=== PATIENT | female | born 2000 | race African-American/Black ===

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

== ENCOUNTER 2024-10-07 18:17 | Inpatient (IN) ==
--- NOTE | 2024-10-07 20:28 | Emergency Department Note ---
Impression & Plan Abscess of breast ED Provider Note CHIEF COMPLAINT: Breast abscess HISTORY OF PRESENTING ILLNESS: The patient is a pleasant, 24-year-old female who arrives to the emergency department for evaluation of a left breast abscess. The patient reports she has been taking oral antibiotics, however is noting no resolution of her symptoms. She was seen here in the emergency department on Saturday, and informed there was not a significant amount of fluid to drain. She reports there is no improvement in her symptoms, however her pain is increasing. She reports no fever. REVIEW OF SYSTEMS: See HPI for pertinent positives and pertinent negatives. ALLERGIES: See below MEDICATIONS: See below PAST MEDICAL HISTORY: See below PHYSICAL EXAM: VITALS: Vitals are noted on the nurse's note and reviewed by myself. Vital signs stable. GENERAL: 24-year-old female, in no acute distress, nondiaphoretic, well- developed well-nourished. SKIN: Large area of induration present, under the left breast fold, fluctuance present, with surrounding cellulitis. HEART: Regular rate and rhythm without murmurs gallops or rubs. LUNGS: Clear to auscultation bilaterally without wheezes, rales or rhonchi. No retractions or accessory muscle use. NEURO: Patient was alert and oriented to person place and time. No focal neurological deficits. DIFFERENTIAL DIAGNOSIS: Cellulitis, abscess, MRSA infection, DVT, necrotizing fasciitis, dermatitis, drug eruption, allergic reaction, as well as other pathologies. ED COURSE AND MEDICAL DECISION MAKING: MEDICATIONS GIVEN: Zosyn 4.5 g IVPB INTERPRETATION OF LABS: I interpreted the labs with full lab results as below in the lab section of this note. Pertinent lab results discussed in the MDM section below. INTERPRETATION OF IMAGING: Imaging studies were interpreted by myself and read by radiology as per the imaging section of this note. CONSULTATIONS: I spoke with Dr. Obrien, from general surgery who recommended IV abx and NPO at midnight. He will evaluate the patient in the morning for need of surgical intervention. MDM SUMMARY: The patient is a pleasant 24-year-old female who arrives to the emergency department for evaluation of the above-stated complaint. The patient arrived during a time of high acuity, and high-volume. Initial workup was obtained including an ultrasound of the left breast, CBC, CMP, and saline lock. Ultrasound imaging does show a complex fluid collection, with vascular flow. CBC shows no leukocytosis, with a stable anemia. CMP is unremarkable. Dr. Obrien from general surgery, recommended IV antibiotics, n.p.o. at midnight, and admission to medicine with his evaluation in the morning to determine surgical intervention if necessary. IV Zosyn was administered to the patient. I spoke with case management regarding contact with the [facility] for admission. Dr. Rasmussen, from the [facility] agreed to accept patient, under his care. Please refer to his documentation, as well as Dr. Obrien's documentation for further patient workup and treatment. DIAGNOSIS: Breast abscess The chart was completed utilizing [employer] voice recognition software. Grammatical errors, random word insertions, pronoun errors, and incomplete sentences are an occasional consequence of this system due to software limitations, ambient noise, and hardware issues. Any formal questions or concerns about the content, text, or information contained within the body of this dictation should be directly addressed to the provider for clarification. Past Med/Surg History Problem List (Updated 10/12/24 @ 23:21 by FILEMON Watson) Abscess of breast (Acute) Cellulitis of left breast (Acute) Pilonidal cyst Encounter for pre-operative examination Medical History Hx: UTI (urinary tract infection) (07/2024) s/p abx completion Morbid obesity Anxiety mild, no medications Eczema no medications Asthma Pilonidal abscess 2020 + current Syncope 2018 r/t hypoglycemia (treated at [facility] > given juice, crackers, normal saline) Surgical History History of excision of pilonidal cyst (2020) H/O wisdom tooth extraction Family History Sister Family history of reaction to anesthesia s/p appendectomy had to stay several days post op due to hypoxemia and oxygen supplementation at [facility]. Graves' disease Social History Smoking Status: Current every day smoker Tobacco Type: E-cigarettes / Vaping Cigarettes Per Day: vapes daily (Advised); Second Hand Exposure: No; Do You Dip or Chew Tobacco: No; Hx Alcohol Use: No Hx Substance Use: No Preferred Language: Niuean Communication Ability: Effective Test Lead Required: No Beliefs That Will Affect Care: None Current Living Situation: Other Current Living Situation Comment: lives with grandmother Feels Safe at Home: Yes Safety Concerns: Feels Safe At This Time Assistive Devices: None Allergies Allergies Allergy/AdvReac Type Severity Reaction Status Date / Time No Known Drug Allergies Allergy Unknown NONE Verified 10/07/24 22:58 Home Meds Home Medications Medication Instructions Recorded Confirmed montelukast 10 mg tablet 10 mg PO HS PRN allergies 03/14/21 10/07/24 albuterol sulfate 90 mcg/actuation 1 inh inhalation QID PRN sob 03/22/21 10/07/24 aerosol inhaler cetirizine 10 mg tablet 10 mg PO QAM PRN allergies 03/22/21 10/07/24 fluticasone 250 mcg-salmeterol 50 1 inh inhalation BID 03/22/21 10/07/24 mcg/dose blistr powdr for inhalation (Advair Diskus) levonorgestrel 17.5 mcg/24 hr (up 17.5 mcg intrauterine UD 08/24/24 10/07/24 to 5 yrs) 19.5mg intrauterine device (Kyleena) nystatin 100,000 unit/mL oral 5 ml PO QID 10/07/24 10/07/24 suspension Previous Rx's Medication Instructions Recorded ciprofloxacin HCl 250 mg tablet 750 mg (3 x 250 mg) PO Q12H #12 10/09/24 tabs fluconazole 150 mg tablet 150 mg PO DAILY 1 dose #1 tab 10/09/24 oxycodone-acetaminophen 5 mg-325 1 tab PO Q6H PRN pain (scale score 10/09/24 mg tablet 7-10) #5 tabs Results & Data (ED) Vital Signs Vital Signs - 24 hr 10/07/24 18:41 10/07/24 22:28 Temperature 36.1 C L 36.7 C Temperature Source Temporal Artery Scan Oral Pulse Rate 78 Pulse Rate [Right] 59 L Respiratory Rate 18 16 Respiratory Effort / Characteristics Non-Labored Spontaneous Non-Labored Spontaneous Respiratory Depth Normal Normal Respiratory Pattern Regular Regular Blood Pressure 148/85 H Blood Pressure [Right Arm] 123/88 Blood Pressure Mean 106 Blood Pressure Mean [Right Arm] 99 Blood Pressure Position [Right Arm] Semi-fowlers Pulse Oximetry 100 100 Oxygen Delivery Method Room Air Room Air Sepsis Recent Fever Within 48 Hours No Sepsis New/Unexplained Change in Mental Status N/A Sepsis Action Taken by Nursing No Action Required Home Medications Current Medication List: was personally reviewed by me Laboratory Data Attestation: I reviewed the patient's lab results. 10/09/24 07:45 10/09/24 07:45 Lab Results 10/07/24 Range/Units 22:47 WBC 8.20 (4.8-10.8) K/ul RBC 4.07 L (4.20-5.40) M/uL Hgb 11.0 L (12.0-16.0) g/dl Hct 34.1 L (37.0-47.0) % MCV 83.8 (80.0-100.0) fL MCH 27.0 (25.0-34.0) pg MCHC 32.3 (32.0-36.0) g/dL RDW Std Deviation 40.7 (36.4-46.3) fL RDW Coeff of Fadi 13.2 (11.5-14.5) % Plt Count 300 (130-400) K/uL MPV 9.9 (9.4-12.4) fL Immature Gran % (Auto) 0.2 % Neut % (Auto) 38.0 % Lymph % (Auto) 47.2 % Walsh % (Auto) 9.5 % Eos % (Auto) 4.6 % Baso % (Auto) 0.5 % Neut # (Auto) 3.11 (1.40-6.50) K/uL Lymph # (Auto) 3.87 H (1.20-3.40) K/uL Walsh # (Auto) 0.78 H (0.11-0.59) K/uL Eos # (Auto) 0.38 (0.00-0.50) K/uL Baso # (Auto) 0.04 (0.00-0.20) K/uL Immature Gran # (Auto) 0.02 (0.01-0.20) K/uL Sodium 138 (136-145) mmol/L Potassium 3.8 (3.5-5.1) mmol/L Chloride 104 (98-107) mmol/L Carbon Dioxide 28 (21-32) mmol/L Anion Gap 6 (3-11) BUN 11 (6-23) mg/dl Creatinine 1.09 (0.6-1.2) mg/dl Est Cr Clr Drug Dosing 110.9 ml/min eGFR 72.75 BUN/Creatinine Ratio 10.1 (10-20) Glucose 76 (70-99(Fasting)) mg/dl Calcium 8.8 (8.6-10.3) mg/dl Total Bilirubin 0.4 (0.2-1.0) mg/dl AST 21 (13-39) U/L ALT 29 (7-52) U/L Alkaline Phosphatase 56 (34-104) U/L Total Protein 7.6 (6.0-8.3) gm/dl Albumin 3.8 (3.4-5.0) gm/dl Globulin 3.8 (2.5-4.0) gm/dl Albumin/Globulin Ratio 1.0 (0.9-2) Administered Medications Discontinued Medications Acetaminophen (Acetaminophen 325 Mg Tab) 650 mg PO Q4H PRN PRN Reason: pain/fever Stop: 11/07/24 01:23 Last Admin: 10/08/24 10:35 Dose: 650 mg Documented By: NMS Bupivacaine HCl/Epinephrine Bitart (Bupivacaine/Epinephrine 0.5% Mpf 1:200,000 30 Ml Vial) Confirm Administered Dose 30 ml .ROUTE .STK-MED ONE Stop: 10/08/24 14:29 Last Admin: 10/08/24 15:07 Dose: 20 ml Documented By: [facility] Ciprofloxacin (Ciprofloxacin 500 Mg Tab) 750 mg PO Q12H JESS; Protocol Stop: 10/16/24 11:59 Last Admin: 10/09/24 11:57 Dose: 750 mg Documented By: MTM Fentanyl Citrate (Fentanyl Citrate Pf 100 Mcg/2 Ml Vial) 25 mcg IV Q5M PRN PRN Reason: PACU Use Only-Pain Stop: 10/08/24 22:08 Last Admin: 10/08/24 15:55 Dose: 25 mcg Documented By: ENDY Fluticasone/Vilanterol (Fluticasone/Vilanterol 200/25mcg 14 Puffs/Inhaler) 1 puffs INH DAILY JESS Stop: 11/07/24 08:59 Last Admin: 10/09/24 07:49 Dose: 1 puffs Documented By: Admin: 10/08/24 08:23 Dose: 1 puffs Documented By: YUDELKA Hydromorphone HCl (Hydromorphone Inj 0.5 Mg/0.5 Ml Syr) 0.5 mg IV Q4H PRN PRN Reason: Pain Stop: 10/22/24 14:07 Last Admin: 10/08/24 23:22 Dose: 0.5 mg Documented By: Admin: 10/08/24 17:13 Dose: 0.5 mg Documented By: YUDELKA Hydromorphone HCl (Hydromorphone Inj 1 Mg/Ml Syringe) Confirm Administered Dose 1 mg .ROUTE .STK-MED ONE Stop: 10/08/24 15:14 Last Admin: 10/08/24 16:49 Dose: Not Given Documented By: YUDELKA Piperacillin Sod/Tazobactam Sod (Zosyn) 4.5 gm in 100 mls @ 200 mls/hr IV NOW ONE; Protocol Stop: 10/07/24 23:18 Last Infusion: 10/07/24 23:52 Dose: Infused Documented By: Admin: 10/07/24 23:21 Dose: 200 mls/hr Documented By: ELLIE Piperacillin Sod/Tazobactam Sod (Zosyn) 4.5 gm in 100 mls @ 25 mls/hr IV Q8H JESS; Protocol Stop: 10/15/24 03:59 Last Infusion: 10/09/24 08:01 Dose: Infused Documented By: Admin: 10/09/24 04:00 Dose: 25 mls/hr Documented By: Infusion: 10/09/24 00:59 Dose: Infused Documented By: Admin: 10/08/24 20:39 Dose: 25 mls/hr Documented By: Infusion: 10/08/24 19:23 Dose: Infused Documented By: Admin: 10/08/24 13:55 Dose: 25 mls/hr Documented By: Infusion: 10/08/24 09:20 Dose: Infused Documented By: Admin: 10/08/24 05:16 Dose: 25 mls/hr Documented By: AL Sodium Chloride (Nss) 1,000 mls @ 100 mls/hr IV .Q10H JESS Stop: 10/09/24 01:23 Last Admin: 10/08/24 18:34 Dose: Not Given Documented By: Infusion: 10/08/24 18:33 Dose: Infused Documented By: Admin: 10/08/24 01:54 Dose: 100 mls/hr Documented By: AL Vancomycin HCl 2,500 mg/ (Sodium Chloride) 550 mls @ 180 mls/hr IV NOW ONE Stop: 10/08/24 04:48 Last Infusion: 10/08/24 05:34 Dose: Infused Documented By: Admin: 10/08/24 01:54 Dose: 180 mls/hr Documented By: AL Vancomycin HCl 1,250 mg/ (Sodium Chloride) 275 mls @ 200 mls/hr IV Q12H JESS Stop: 10/15/24 13:59 Last Infusion: 10/09/24 02:40 Dose: Infused Documented By: Admin: 10/09/24 01:17 Dose: 200 mls/hr Documented By: Infusion: 10/08/24 16:56 Dose: Infused Documented By: Admin: 10/08/24 14:14 Dose: 200 mls/hr Documented By: YUDELKA Midazolam HCl (Midazolam Hcl 1 Mg/Ml 2ml Vial) Confirm Administered Dose 2 mg .ROUTE .STK-MED ONE Stop: 10/08/24 15:22 Last Admin: 10/08/24 16:50 Dose: Not Given Documented By: YUDELKA Morphine Sulfate (Morphine Sulfate 4 Mg/Ml 1 Ml Carp\Vial) 3 mg IV NOW STA Stop: 10/07/24 23:53 Last Admin: 10/08/24 00:20 Dose: 3 mg Documented By: ELLIE Morphine Sulfate (Morphine Sulfate 4 Mg/Ml 1 Ml Carp\Vial) 3 mg IV Q6H PRN PRN Reason: Severe Pain (Scale 7, 8, 9,10) Stop: 10/22/24 01:23 Last Admin: 10/08/24 05:16 Dose: 3 mg Documented By: AL Nystatin (Nystatin Susp 500,000 U/5 Ml Udc) 5 ml PO QID JESS Stop: 10/18/24 08:59 Last Admin: 10/09/24 11:58 Dose: 5 ml Documented By: Admin: 10/09/24 07:49 Dose: 5 ml Documented By: Admin: 10/08/24 20:26 Dose: 5 ml Documented By: Admin: 10/08/24 17:42 Dose: Not Given Documented By: Admin: 10/08/24 17:13 Dose: 5 ml Documented By: Admin: 10/08/24 08:23 Dose: 5 ml Documented By: YUDELKA Ondansetron HCl (Ondansetron Inj 2 Mg/Ml 2 Ml Vial) 4 mg IV Q6H PRN PRN Reason: Nausea And Vomiting Stop: 11/07/24 16:34 Last Admin: 10/08/24 20:41 Dose: 4 mg Documented By: MARGARITA Oxycodone/Acetaminophen (Oxycodone/Acetaminophen 5mg/325mg Tab) 2 tab PO Q4H PRN PRN Reason: SEVERE Pain (7,8,9,10) Stop: 10/22/24 16:34 Last Admin: 10/09/24 04:03 Dose: 2 tab Documented By: MARGARITA Imaging Data Attestation: I personally reviewed and interpreted this imaging study as follows: Radiologist's Impression: Breast Ultrasound 10/07/24 20:23 Exam(s): US LEFT BREAST EXAM: US Left Breast, Limited CLINICAL HISTORY: Reason for exam: breast. TECHNIQUE: Limited real time ultrasound of the left breast with image documentation, including axilla when performed. COMPARISON: No relevant prior studies available. FINDINGS: Left breast: Complex well-circumscribed hypoechoic fluid collection in the left breast at 9:00 measuring 4.0 x 4.7 x 2.5 cm. IMPRESSION: Complex hypoechoic fluid collection in the left breast at 9:00 measuring 4.0 x 4.7 x 2.5 cm with abscess in the appropriate clinical setting. Electronically signed by: Xavier Morris MD 10/07/24 22:37 PM Discharge Plan Visit Data Chief Complaint: Breast Pain/Problems Stated Complaint: BREAST ABCESS ED Provider: Nikolay Dow ED Midlevel Provider: Samia Perez Discharge Problem: Abscess of breast Patient Disposition: Admitted As Inpatient Discharge Instructions Interventions: ED Discharge Assessment Last Done: 10/08/24 01:14
--- NOTE | 2024-10-07 22:38 | Ultrasound Report ---
Exam(s): US LEFT BREAST EXAM: US Left Breast, Limited CLINICAL HISTORY: Reason for exam: breast. TECHNIQUE: Limited real time ultrasound of the left breast with image documentation, including axilla when performed. COMPARISON: No relevant prior studies available. FINDINGS: Left breast: Complex well-circumscribed hypoechoic fluid collection in the left breast at 9:00 measuring 4.0 x 4.7 x 2.5 cm. IMPRESSION: Complex hypoechoic fluid collection in the left breast at 9:00 measuring 4.0 x 4.7 x 2.5 cm with abscess in the appropriate clinical setting. Electronically signed by: Xavier Morris MD 10/07/24 22:37 PM
[2024-10-07] MEDS: PIPERACILLIN/TAZOBACTAM 4.5 GM/100 ML BAG IV ONE (23:21)
[2024-10-07 23:38] LABS: Basophils # (auto) 0.04 K/uL (0.00-0.20); Basophils % (auto) 0.5 %; Eosinophils # (auto) 0.38 K/uL (0.00-0.50); Eosinophils % (auto) 4.6 %; Hematocrit (blood only) 34.1 % (37.0-47.0); Immature Granulocytes # (auto) 0.02 K/uL (0.01-0.20); Immature Granulocytes % (auto) 0.2 %; Lymphocytes # (auto) 3.87 K/uL (1.20-3.40); Lymphocytes % (auto) 47.2 %; Mean Corpuscular Hgb Conc 32.3 g/dL (32.0-36.0); Mean Corpuscular Volume 83.8 fL (80.0-100.0); Mean Platelet Volume 9.9 fL (9.4-12.4); Monocytes # (auto) 0.78 K/uL (0.11-0.59); Monocytes % (auto) 9.5 %; Neutrophils # (auto) 3.11 K/uL (1.40-6.50); Platelet Count 300 K/uL (130-400); RDW Coefficient of Variation 13.2 % (11.5-14.5); RDW Standard Deviation 40.7 fL (36.4-46.3); Red Blood Count 4.07 M/uL (4.20-5.40)
[2024-10-07 23:57] LABS: Albumin Level 3.8 gm/dl (3.4-5.0); BUN Creatinine Ratio 10.1 (10-20); Bilirubin,Total 0.4 mg/dl (0.2-1.0); Calcium 8.8 mg/dl (8.6-10.3); Creatinine Clr Calc Pharmacy 110.9 ml/min; Globulin 3.8 gm/dl (2.5-4.0); Potassium 3.8 mmol/L (3.5-5.1); Total Protein 7.6 gm/dl (6.0-8.3)
--- NOTE | 2024-10-08 00:18 | History & Physical Report ---
Date of Service October 07, 2024 Assessment & Plan (1) Abscess of breast: Plan: 24-year-old female with past medical history significant for allergic rhinitis, mild persistent asthma, morbid obesity, eczema, presents with failed outpatient treatment for left breast abscess. Patient says having the abscess for last 1 week. Initially was treated with amoxicillin. She was in the ER on 10/06/2024 and she was prescribed Keflex and Bactrim. Patient says she is not getting better. Having a lot of pain. Denies any fevers. No drainage from the abscess. No headache. No sore throat or cough. No nausea. No shortness of breath. No abdominal pain. Currently resting comfortably and hemodynamically stable. Patient says she had breast abscess in the same site couple of years ago. Abscess of left breast Failed outpatient treatment initially with Amoxicillin and then with Keflex and Bactrim Left breast upper medial aspect swollen, no erythema or drainage seen on inspection with nurse present in the room Breast ultrasound showing 4X4.7X 2.5 cm complex well-circumscribed hypoechoic fluid collection in the left breast at 9 Empirically starting on IV Vanco and Zosyn N.p.o., IV fluids, pain control Surgery consult in a.m. Mild persistent asthma Continue home inhalers Currently stable Morbid obesity Counseling DVT prophylaxis SCDs for now Disposition Medical floor Full code History of Present Illness Chief Complaint: Left breast abscess Primary Care Provider: Jazmine Shell MD 24-year-old female with past medical history significant for allergic rhinitis, mild persistent asthma, morbid obesity, eczema, presents with failed outpatient treatment for left breast abscess. Patient says having the abscess for last 1 week. Initially was treated with amoxicillin. She was in the ER on 10/06/2024 and she was prescribed Keflex and Bactrim. Patient says she is not getting better. Having a lot of pain. Denies any fevers. No drainage from the abscess. No headache. No sore throat or cough. No nausea. No shortness of breath. No abdominal pain. Currently resting comfortably and hemodynamically stable. Patient says she had breast abscess in the same site couple of years ago. Past medical history. As mentioned above Past surgical history. No surgical history on file. Social history. Vapes per epic. No alcohol use. No drug use. Family history. Mother has chronic rhinitis. Asthma. Maternal aunt has asthma. Maternal grandmother has asthma. Diabetes. Sister has asthma. Sister has Graves' disease. Allergies Allergy/AdvReac Type Severity Reaction Status Date / Time No Known Drug Allergies Allergy Unknown NONE Verified 10/07/24 22:58 Home Medications Medication Instructions Recorded Confirmed Type montelukast 10 mg tablet 10 mg PO HS PRN allergies 03/14/21 10/07/24 History albuterol sulfate 90 mcg/actuation 1 inh inhalation QID PRN sob 03/22/21 10/07/24 History aerosol inhaler cetirizine 10 mg tablet 10 mg PO QAM PRN allergies 03/22/21 10/07/24 History fluticasone 250 mcg-salmeterol 50 1 inh inhalation BID 03/22/21 10/07/24 History mcg/dose blistr powdr for inhalation (Advair Diskus) levonorgestrel 17.5 mcg/24 hr (up 17.5 mcg intrauterine UD 08/24/24 10/07/24 History to 5 yrs) 19.5mg intrauterine device (Kyleena) cephalexin 500 mg capsule 500 mg PO TID 10 days #30 caps 10/05/24 10/07/24 Rx sulfamethoxazole 800 1 tab PO BID 10 days #20 tabs 10/05/24 10/07/24 Rx mg-trimethoprim 160 mg tablet (Bactrim DS) nystatin 100,000 unit/mL oral 5 ml PO QID 10/07/24 10/07/24 History suspension Past Med/Surg History Problem List (Updated 10/05/24 @ 19:47 by Sarai Bobo DO) Abscess of breast (Acute) Cellulitis of left breast (Acute) Pilonidal cyst Encounter for pre-operative examination Medical History Anxiety mild, no medications Asthma Eczema no medications Hx: UTI (urinary tract infection) (07/2024) s/p abx completion Morbid obesity Pilonidal abscess 2020 + current Syncope 2017 r/t hypoglycemia (treated at [facility] > given juice, crackers, normal saline) Surgical History H/O wisdom tooth extraction History of excision of pilonidal cyst (2020) Family History Sister Family history of reaction to anesthesia s/p appendectomy had to stay several days post op due to hypoxemia and oxygen supplementation at [facility]. Graves' disease Social History Smoking Status: Current every day smoker Tobacco Type: E-cigarettes / Vaping Cigarettes Per Day: vapes daily (Advised); Second Hand Exposure: No; Do You Dip or Chew Tobacco: No; Hx Alcohol Use: No Hx Substance Use: No Preferred Language: Luxembourger Communication Ability: Effective Post Commander Required: No Beliefs That Will Affect Care: None Current Living Situation: Other Current Living Situation Comment: lives with grandmother Feels Safe at Home: Yes Safety Concerns: Feels Safe At This Time Assistive Devices: None Review of Systems Review of Systems: All systems reviewed & are unremarkable except as noted in HPI & below Physical Exam Physical Exam: General- Not in distress Head- atraumatic Eyes- PERRL. ENT- oropharynx clear Neck- supple, no JVD. Lungs- clear to auscultation no wheezing or crackles Heart- regular rhythm; no murmur, no gallop Breast : Left breast upper medial side swollen, no erythema or drainage seen Abdomen- normal bowel sounds, soft, nontender, no distension Extremities- no pretibial edema, no erythema seen. Neuro- alert, oriented PERRL, no facial palsy; no dysarthria; moves extremities Results & Data Results & Data Vital Signs (Past 12 Hours) Vital Signs Temp Pulse Pulse Resp BP BP Pulse Ox 10/07/24 22:28 36.7 C 59 L 16 123/88 100 10/07/24 18:41 36.1 C L 78 18 148/85 H 100 O2 Del Method 10/07/24 22:28 Room Air 10/07/24 18:41 Room Air Diagnostic Findings Laboratory Results WBC 8.20 K/ul (4.8-10.8) 10/07/24 22:47 RBC 4.07 M/uL (4.20-5.40) L 10/07/24 22:47 Hgb 11.0 g/dl (12.0-16.0) L 10/07/24 22:47 Hct 34.1 % (37.0-47.0) L 10/07/24 22:47 MCV 83.8 fL (80.0-100.0) 10/07/24 22:47 MCH 27.0 pg (25.0-34.0) 10/07/24 22:47 MCHC 32.3 g/dL (32.0-36.0) 10/07/24 22:47 RDW Std Deviation 40.7 fL (36.4-46.3) 10/07/24 22: RDW Coeff of Fadi 13.2 % (11.5-14.5) 10/07/24 22:47 Plt Count 300 K/uL (130-400) 10/07/24 22:47 MPV 9.9 fL (9.4-12.4) 10/07/24 22:47 Immature Gran % (Auto) 0.2 % 10/07/24 22:47 Neut % (Auto) 38.0 % 10/07/24 22:47 Lymph % (Auto) 47.2 % 10/07/24 22:47 [place] % (Auto) 9.5 % 10/07/24 22:47 Eos % (Auto) 4.6 % 10/07/24 22:47 Baso % (Auto) 0.5 % 10/07/24 22:47 Neut # (Auto) 3.11 K/uL (1.40-6.50) 10/07/24 22:47 Lymph # (Auto) 3.87 K/uL (1.20-3.40) H 10/07/24 22:47 [place] # (Auto) 0.78 K/uL (0.11-0.59) H 10/07/24 22:47 Eos # (Auto) 0.38 K/uL (0.00-0.50) 10/07/24 22:47 Baso # (Auto) 0.04 K/uL (0.00-0.20) 10/07/24 22:47 Immature Gran # (Auto) 0.02 K/uL (0.01-0.20) 10/07/24 22:47 Sodium 138 mmol/L (136-145) 10/07/24 22:47 Potassium 3.8 mmol/L (3.5-5.1) 10/07/24 22:47 Chloride 104 mmol/L (98-107) 10/07/24 22:47 Carbon Dioxide 28 mmol/L (21-32) 10/07/24 22:47 Anion Gap 6 (3-11) 10/07/24 22:47 BUN 11 mg/dl (6-23) 10/07/24 22:47 Creatinine 1.09 mg/dl (0.6-1.2) 10/07/24 22:47 Est Cr Clr Drug Dosing 110.9 ml/min 10/07/24 22:47 eGFR 72.75 10/07/24 22:47 BUN/Creatinine Ratio 10.1 (10-20) 10/07/24 22:47 Glucose 76 mg/dl (70-99(Fasting)) 10/07/24 22:47 Calcium 8.8 mg/dl (8.6-10.3) 10/07/24 22:47 Total Bilirubin 0.4 mg/dl (0.2-1.0) 10/07/24 22:47 AST 21 U/L (13-39) 10/07/24 22:47 ALT 29 U/L (7-52) 10/07/24 22:47 Alkaline Phosphatase 56 U/L (34-104) 10/07/24 22:47 Total Protein 7.6 gm/dl (6.0-8.3) 10/07/24 22:47 Albumin 3.8 gm/dl (3.4-5.0) 10/07/24 22:47 Globulin 3.8 gm/dl (2.5-4.0) 10/07/24 22:47 Albumin/Globulin Ratio 1.0 (0.9-2) 10/07/24 22:47 Impressions Breast Ultrasound 10/07/24 20:23 Exam(s): US LEFT BREAST EXAM: US Left Breast, Limited CLINICAL HISTORY: Reason for exam: breast. TECHNIQUE: Limited real time ultrasound of the left breast with image documentation, including axilla when performed. COMPARISON: No relevant prior studies available. FINDINGS: Left breast: Complex well-circumscribed hypoechoic fluid collection in the left breast at 9:00 measuring 4.0 x 4.7 x 2.5 cm. IMPRESSION: Complex hypoechoic fluid collection in the left breast at 9:00 measuring 4.0 x 4.7 x 2.5 cm with abscess in the appropriate clinical setting. Electronically signed by: Xavier Morris MD 10/07/24 22:37 PM Code Status & VTE Plan VTE Prophylaxis Plan VTE Prophylaxis will be ordered: Yes
[2024-10-08] MEDS: MoRPHine SULFATE 4 MG/ML 1 ML CARP\\VIAL IV STA (00:20)
[2024-10-08] MEDS ORDERED: CETIRIZINE HCL 10 MG TABLET PO PRN (01:24)
[2024-10-08] MEDS ORDERED: ALBUTEROL HFA 8 GM INHALER INH PRN (01:24)
[2024-10-08] MEDS ORDERED: VANCOMYCIN CONSULT ACTIVE PRN (01:24)
[2024-10-08] MEDS: SODIUM CHLORIDE 0.9% 1,000 ML IV SCH (01:54)
[2024-10-08] MEDS: VANCOMYCIN HCL 2,500 MG in SODIUM CHLORIDE 0.9% 500 ML IV ONE (01:54)
[2024-10-08] MEDS: MoRPHine SULFATE 4 MG/ML 1 ML CARP\\VIAL IV PRN (05:16)
[2024-10-08] MEDS: PIPERACILLIN/TAZOBACTAM 4.5 GM/100 ML BAG IV SCH (05:16)
--- OUTSIDE RECORDS SUMMARY | 2024-10-08 05:24 | External Medical Summary | Summary of Care ---
Author Name Unknown Organization [facility] Address [address] [facility] [place] [address] Phone [phone] Care Team Providers Care Customer Success Manager Name Role Phone Jazmine Shell MD Primary Care Provider Reason for Visit * Reason Onset Date Comments Forms Request 09/28/2024 Encounter Details Date Type Department Care Team (Late st Contact Info) Description 09/28/2024 Telephone General Internal Medicine [facility] [place] [address] [facility] [place] [address] Jazmine Shell MD [address] [place] [address] Forms Request Allergies Active Allergy Reactions Criticality Noted Date Comments Cat Dander 04/25/2020 Dog Dander 04/25/2020 Pollen 04/25/2020 documented as of this encounter (statuses as of 10/06/2024) Medications Spacer/Aero-Hold Chamber MaskIndications:M ild persistent asthma without complication Use with inhaler as directed 1 Each 0 Active Acetaminophen 500 MG Oral Tablet (Tylenol)Indicati ons:Pilonidal abscess Take 2 Tabs by mouth every 8 hours. Till pain better 100 Tab 1 Active Albuterol Sulfate HFA 108 (90 Base) MCG/ACT Inhalation Aerosol SolutionIndicatio ns:Mild persistent asthma without complication Inhale 2 Puffs by mouth every 4 hours as needed for Cough, Shortness of Breath or Wheezing. 3 to 5 minutes apart. 18 g 3 2 Active Fluticasone-Salme terol 250-50 MCG/ACT Inhalation Aerosol Powder Breath Activated (Advair Diskus) Inhale 1 Puff by mouth in the morning and 1 Puff before bedtime. 180 Each 4 Active Cetirizine HCl 10 MG Oral Tablet (ZyrTEC Allergy)Indicatio ns:Seasonal allergic rhinitis, unspecified trigger Take 1 Tablet by mouth at bedtime. 90 Tablet 4 Active Montelukast Sodium 10 MG Oral Tablet (Singulair)Indica tions:Allergic sinusitis,Eczema, unspecified type Take 1 Tablet by mouth at bedtime. 90 Tablet 4 Active Ibuprofen 600 MG Oral Tablet (Motrin)Indicatio ns:Pilonidal abscess Take 1 Tablet by mouth in the morning and 1 Tablet at noon and 1 Tablet before bedtime. With food, for pain.. 30 Tablet 4 Active Fluticasone Propionate 50 MCG/ACT Nasal Suspension (Flonase)Indicati ons:Flu-like symptoms Administer 2 Sprays into each nostril in the morning. 16 g 5 5 Active methylPREDNISolon e 4 MG Oral Tablet Therapy Pack (Medrol Dosepack)Indicati ons:Flu-like symptoms follow package directions 21 Tablet 5 Active documented as of this encounter (statuses as of 10/06/2024) Active Problems Problem Noted Date Diagnosed Date Body mass index (BMI) of 40.0 to 44.9 in adult 0 03/25/2023 Overview: Per Obesity protocol - Per Obesity protocol - - Allergic conjunctivitis, bilateral 03/09/2020 Allergic rhinitis 03/09/2020 Mild persistent asthma without complication 02/10 Eczema 11/20/2011 Abnormal weight gain 05/19/2009 documented as of this encounter (statuses as of 10/06/2024) Resolved Problems Problem Noted Date Diagnosed Date Resolved Date Body mass index (BMI) of 45. 0 to 49.9 in adult 03/23/2019 03/28/2023 Overview: Per Obesity protocol - - Allergic sinusitis 01/12/2019 0 Body mass index (BMI) of 40. 0 to 44.9 in adult 10/20/2018 03/26/2019 Overview: Per Obesity protocol #1 - Body mass index (BMI) of 45. 0 to 49.9 in adult 07/21/2018 10/21/2018 Overview: Per Obesity protocol #1 documented as of this encounter (statuses as of 10/06/2024) Immunizations Name Administration Dates Next Due COVID-19 mRNA, LNP-s, No Pre serve, 2-Dose Series ([employer]) 03/28/2021,03/07/2021 HPV Vaccine, 4-Valent 09/14/2014,07/14/2014 HPV Vaccine, 9-Valent 10/12/2015 Haemophilius B (HIB), unspecified 12/23/2001 Influenza Vaccine, Live, Int ranasal, Trivalent (Flumist) 06/06/2010,05/19/2009 Meningococcal Conjugate Vacc ine (Menactra/Menveo) 09/20/2016,11/20/2011 PPD 06/27/2023, 2,01/27/2021,03/25,02/24/2018 Pneumococcal Conjugate Vacci ne, 20-valent ([id number]) 01/11/2022 Pneumococcal Polysaccharide PPV23 (Pneumovax) 05/17/2020 Seasonal Influenza Vac., MDV , IM, 0.5 mL (Fluzone) 08/11/2013 Seasonal Influenza Virus Vac cine, Unspecified Formulation 05/17/2020,08/10/2019,10/14/2017,08/11,06/06/2010,05/19/2009 Seasonal Influenza, PF, 6 M & above, IM , (FluLaval or Fluzone) 05/17/2020,08/10/2019,10/14/2017 Seasonal Influenza, Quad, Na kristy (Flumist) 07/19/2015 TDAP (age 10 and older)(Boostrix) 10/14/2017 TDAP, Age 7 and older, IM (Adacel) 11/20/2011 Varicella Vaccine (Chicken Pox) 05/19/2009 documented as of this encounter Social History Tobacco Use Types Packs/Day Years Used Date Smoking Tobacco: Every Day Vaporizer Started: 2018 Smokeless Tobacco: Never Alcohol Use Standard Drinks/Week Comments No 0 (1 standard drink = 0.6 oz pur e alcohol) PHQ-2 Answer Date Recorded PHQ Adult Total Score 0 03/28/2023 Hunger Vital Sign Answer Date Recorded Worried About Running Out of Food in the Last Ye ar Never true 08/10/2019 Ran Out of Food in the Last Year Never true 08/10/2019 Comments No Sex and Gender Information Value Date Recorded Sex Assigned at Female 03/20/2019 2:12 PM EDT Legal Sex Female 6:23 AM EST Gender Identity Female 03/20/2019 2:12 PM EDT Sexual Orientation Straight 03/20/2019 2: 12 PM EDT documented as of this encounter Miscellaneous Notes * Telephone Encounter - Julisa Reynaga OSA - 09/29/2024 10:25 AM EST Called and talked to pt, she has apt 09/30/2024 * Telephone Encounter - Jazmine Shell MD - 09/28/2024 3:22 PM EST Noted and yes will fill these in visit * Telephone Encounter - Rochelle Cruz CMA - 09/28/2024 3:07 PM EST Patient presents to office today for acute visit with Dr. Nj, asked me to pass along paperwork for Dr. Shell. Upon review, one is a physical form for employment and the other is an insuranceform for state assistance insurance to verify that she has medical diagnoses that affect her work, but she is able to work. Patient was last seen by Dr. Shell in August for an acute. Last routine visit was 03/28/23. Papers will be in Dr. Shell's folder to review. Scheduling; please have patient schedule routine CPE visit to have these completed. documented in this encounter Plan of Treatment Upcoming Encounters Date Type Department Care Team (Late st Contact Info) Description 10/20/2024 2:15 PM EDT Office Visit General Surgery, [facility] [address] [place] [id number] Adam Obrien MD [address] [place] [phone] 03/30/2025 2:00 PM EDT Office Visit General Internal Medicine [facility] [address] [facility] [place] [address] Jazmine Shell MD [address] [facility] [place] [address] Health Maintenance Due Date Last Done Comments DISCUSS TOBACCO CESSATION (REFER TO SMARTSET #[id number]) 2000 Hepatitis C Screening 2018 Depression Screening 03/28/2024 03/28/2023 COVID-19 Vaccine ( season) 2024 03/28/2021, 03/07/2021 Influenza Vaccine (FLU shot) (#1) 2024 05/17/2020, 05/17/2020, 08/10/2019, Additional history exists Gonorrhea / Chlamydia Screen 02/27/2025, 03/20/2019, 06/29/2016 Pap Smear 02/27/2027 02/28/2024 DTap/Tdap Vaccines (8 - Td or Tdap) 10/15/2027 10/14/2017, 11/20/2011, 04/06/2005, Additional history exists IUD 5-Year 02/27/2029 02/28/2024 Hepatitis B Vaccine Completed 05/21/2001, 2000, 2000 HPV (Gardasil) Vaccine Completed 6, 09/14/2014, 07/14/2014 MENINGOCOCCAL (MENACTRA/MENVEO) Completed 09/20/2016, 11/20/2011 Pneumococcal Vaccine: Pediatrics (0 to 5 Years) and At-Risk Patients (6 to 18 Years and 19+ Years) Completed 01/11/2022, 05/17/2020 Meningitis B Vaccine (Bexsero/Trumemba) Aged Out No longer eligible based on patient's age to complete this topic documented as of this encounter Medical Devices Not on filedocumented as of this encounter Additional Health Concerns Infection Onset Date Last Indicated Resolved Time Influenza (seasonal) 09/28/2024 09/28/2024 documented as of this encounter Care Teams Customer Success Manager Relationship Specialty Start Date End Date Jazmine Shell MD [address] [place] [address] PCP - General Internal Medicine 01/12/19 documented as of this encounter
[2024-10-08 06:20] LABS: Hematocrit (blood only) 32.4 % (37.0-47.0); Hemoglobin 10.7 g/dl (12.0-16.0); Mean Corpuscular Hemoglobin 27.7 pg (25.0-34.0); Mean Corpuscular Volume 83.9 fL (80.0-100.0); Mean Platelet Volume 9.9 fL (9.4-12.4); Platelet Count 263 K/uL (130-400); RDW Coefficient of Variation 13.3 % (11.5-14.5); RDW Standard Deviation 41.1 fL (36.4-46.3); Red Blood Count 3.86 M/uL (4.20-5.40); White Blood Count 6.86 K/ul (4.8-10.8)
[2024-10-08 06:32] LABS: BUN Creatinine Ratio 10.6 (10-20); Calcium 8.1 mg/dl (8.6-10.3); Creatinine Clr Calc Pharmacy 116.2 ml/min; Magnesium 1.9 mg/dl (1.7-2.4); Potassium 4.2 mmol/L (3.5-5.1)
[2024-10-08 07:01] LABS: Basophils # (auto) 0.03 K/uL (0.00-0.20); Basophils % (auto) 0.4 %; Eosinophils % (auto) 5.8 %; Immature Granulocytes # (auto) 0.02 K/uL (0.01-0.20); Immature Granulocytes % (auto) 0.3 %; Lymphocytes # (auto) 3.52 K/uL (1.20-3.40); Lymphocytes % (auto) 51.3 %; Monocytes # (auto) 0.66 K/uL (0.11-0.59); Monocytes % (auto) 9.6 %; Neutrophils # (auto) 2.23 K/uL (1.40-6.50); Neutrophils % (auto) 32.6 %
--- NOTE | 2024-10-08 08:16 | Pharmacy Report ---
Pharmacy PK ABX Note - Date of Service October 08, 2024 - Assessment and Plan Assessment 24 year old F receiving vancomycin and Zosyn for treatment of reoccurring abscess/cellulitis of the left breast. She states that she had an abscess in the same area a few years ago. This time, she was initially treated with amoxicillin and then was changed to Keflex + Bactrim on 10/06/24. States no improvement and having a lot of pain. * Surgery has been consulted and I&D scheduled for this morning. * Afebrile, without leukocytosis Day # 1 of antimicrobial therapy. Plan Vancomycin * Loading dose: 2500 mg IV x 1 * Maintenance dose: 1250 mg IV every 12 hours * Regimen is predicted to achieve target AUC/TRISTIN of 400-600 mg/L.hr * Random level will be ordered in the next 48 hours. Pharmacy will continue to follow and will adjust dose/frequency as necessary. Thank you. Pharmacy has transitioned to AUC monitoring for vancomycin. AUC/TRISTIN is the preferred PK/PD target and is associated with decreased risk of nephrotoxicity compared to traditional trough targets.
[2024-10-08] MEDS: FLUTICASONE/VILANTEROL 200/25MCG 14 PUFFS/INHALER INH SCH (08:23)
[2024-10-08] MEDS: NYSTATIN SUSP 500,000 U/5 ML UDC PO SCH (08:23)
--- NOTE | 2024-10-08 09:28 | Surgery Consultation ---
Date of Consultation October 08, 2024 Assessment & Plan (1) Abscess of breast: left breast abscess NPO IV abx to OR for I&D Present on Admission?: Yes History of Present Illness Attending Physician: Susana Carcamo MD History of Present Illness This is a 24YO with failed outpatient treatment for left breast abscess. It has been present 1 week and treated with amoxicillin. She is having pain but no fevers or drainage from the abscess. Allergies Allergy/AdvReac Type Severity Reaction Status Date / Time No Known Drug Allergies Allergy Unknown NONE Verified 10/07/24 22:58 Home Medications Medication Instructions Recorded Confirmed Type montelukast 10 mg tablet 10 mg PO HS PRN allergies 03/14/21 10/07/24 History albuterol sulfate 90 mcg/actuation 1 inh inhalation QID PRN sob 03/22/21 10/07/24 History aerosol inhaler cetirizine 10 mg tablet 10 mg PO QAM PRN allergies 03/22/21 10/07/24 History fluticasone 250 mcg-salmeterol 50 1 inh inhalation BID 03/22/21 10/07/24 History mcg/dose blistr powdr for inhalation (Advair Diskus) levonorgestrel 17.5 mcg/24 hr (up 17.5 mcg intrauterine UD 08/24/24 10/07/24 History to 5 yrs) 19.5mg intrauterine device (Kyleena) cephalexin 500 mg capsule 500 mg PO TID 10 days #30 caps 10/05/24 10/07/24 Rx sulfamethoxazole 800 1 tab PO BID 10 days #20 tabs 10/05/24 10/07/24 Rx mg-trimethoprim 160 mg tablet (Bactrim DS) nystatin 100,000 unit/mL oral 5 ml PO QID 10/07/24 10/07/24 History suspension Patient History Medical History Anxiety mild, no medications Asthma Eczema no medications Hx: UTI (urinary tract infection) (07/2024) s/p abx completion Morbid obesity Pilonidal abscess 2020 + current Syncope 2017 r/t hypoglycemia (treated [facility] > given juice, crackers, normal saline) Surgical History H/O wisdom tooth extraction History of excision of pilonidal cyst (2020) Family History Sister Family history of reaction to anesthesia s/p appendectomy had to stay several days post op due to hypoxemia and oxygen supplementation at [facility]. Graves' disease Social History Smoking Status: Current every day smoker Tobacco Type: E-cigarettes / Vaping Cigarettes Per Day: vapes daily (Advised); Second Hand Exposure: No; Do You Dip or Chew Tobacco: No; Hx Alcohol Use: No Hx Substance Use: No Preferred Language: Slovenian Communication Ability: Effective Lead Programmer Required: No Beliefs That Will Affect Care: None Current Living Situation: Other Current Living Situation Comment: lives with grandmother Feels Safe at Home: Yes Assistive Devices: None Review of Systems Constitutional: no fever and no chills Eyes: no problem reported Ear, Nose, Mouth, Throat: no problem reported Respiratory: no cough and no dyspnea Cardiovascular: no chest pain Gastrointestinal: no abdominal pain Genitourinary: no dysuria Musculoskeletal: no back pain Integumentary: + lesions (left breast swelling and redn ess) Neurologic: no localized weakness and no generalized weakness Psychiatric: no behavioral changes Physical Exam Constitutional: WD/WN, vitals as above Eyes: PERRL, conjunctivae normal, anicteric sclerae ENMT: external ear and nose normal, oropharynx normal Neck: trachea midline Respiratory: normal respiratory effort, lungs clear to auscultation Cardiovascular: RRR, no murmur, no edema Chest (Breasts): Breast: + breast mass (left breast abscess at 7 o'clock; erythema and fluctuance) Gastrointestinal (Abdomen): Inspection/Auscultation: abdomen normal to inspection and normal bowel sounds; abdomen not distended Percussion/Palpation: abdomen soft; abdomen nontender Musculoskeletal: Head/Neck/Chest: normocephalic and head atraumatic Skin: no rashes, warm and dry Results & Data Vital Signs (Past 12 Hours) Vital Signs Temp Pulse Pulse Resp BP BP Pulse Ox 10/08/24 07:02 36.7 C 76 16 116/72 100 10/08/24 01:33 36.8 C 67 16 135/82 99 10/08/24 01:14 68 17 118/58 L 98 10/07/24 22:28 36.7 C 59 L 16 123/88 100 O2 Del Method 10/08/24 07:02 Room Air 10/08/24 01:33 Room Air 10/08/24 01:14 Room Air 10/07/24 22:28 Room Air Diagnostic Findings EXAM: US Left Breast, Limited CLINICAL HISTORY: Reason for exam: breast. TECHNIQUE: Limited real time ultrasound of the left breast with image documentation, including axilla when performed. COMPARISON: No relevant prior studies available. FINDINGS: Left breast: Complex well-circumscribed hypoechoic fluid collection in the left breast at 9:00 measuring 4.0 x 4.7 x 2.5 cm. IMPRESSION: Complex hypoechoic fluid collection in the left breast at 9:00 measuring 4.0 x 4.7 x 2.5 cm with abscess in the appropriate clinical setting.
[2024-10-08] MEDS: ACETAMINOPHEN 325 MG TAB PO PRN (10:35)
[2024-10-08] MEDS ORDERED: VANCOMYCIN HCL 1,000 MG/270 ML BAG IV SCH (12:00)
[2024-10-08] MEDS ORDERED: fentaNYL citrate PF 100 MCG/2 ML VIAL ONE (13:59)
[2024-10-08] MEDS ORDERED: MIDAZOLAM HCL 1 MG/ML 2ML VIAL ONE (13:59)
--- NOTE | 2024-10-08 14:07 | Hospitalist Progress Note ---
Date of Service October 08, 2024 Assessment & Plan (1) Abscess of breast: Plan: Ms. Short is a 24-year-old female with past medical history significant for allergic rhinitis, mild persistent asthma, morbid obesity, eczema, presents with failed outpatient treatment for left breast abscess. Patient says having the abscess for last 1 week. Initially was treated with amoxicillin. She was in the ER on 10/06/2024 and she was prescribed Keflex and Bactrim. She was admitted for planned ID of left breast abscess. #Abscess of left breast Failed outpatient treatment initially with Amoxicillin and then with Keflex and Bactrim Left breast upper medial aspect swollen, no erythema or drainage seen on inspection with nurse present in the room Breast ultrasound showing 4X4.7X 2.5 cm complex well-circumscribed hypoechoic fluid collection in the left breast at 9 continue on IV Vanco and Zosyn N.p.o., IV fluids, pain control Surgery planning I&D #Mild persistent asthma Continue home inhalers Currently stable Morbid obesity Counseling DVT prophylaxis SCDs for now Disposition Medical floor Full code Admission and Anticipated Discharge Date Admission Date: October 07, 2024 Subjective evaluated prior to procedure and reports mild discomfort denies any fevers or chills awaiting I&D this afternoon Physical Exam Constitutional: WD/WN, vitals as above Respiratory: normal respiratory effort, lungs clear to auscultation Cardiovascular: RRR, no murmur, no edema Results & Data Results & Data Vital Signs (Past 12 Hours) Vital Signs Temp Pulse Resp BP Pulse Ox O2 Del Method 10/08/24 07:02 36.7 C 76 16 116/72 100 Room Air Laboratory Results Short CBC 10/07/24 10/08/24 Range/Units 22:47 06:01 WBC 8.20 6.86 (4.8-10.8) K/ul Hgb 11.0 L 10.7 L (12.0-16.0) g/dl Hct 34.1 L 32.4 L (37.0-47.0) % Plt Count 300 263 (130-400) K/uL BMP 10/07/24 10/08/24 22:47 06:01 Sodium 138 138 Potassium 3.8 4.2 Chloride 104 109 H Carbon Dioxide 28 27 BUN 11 11 Creatinine 1.09 1.04 Glucose 76 90 Calcium 8.8 8.1 L Liver Function 10/07/24 Range/Units 22:47 Total Bilirubin 0.4 (0.2-1.0) mg/dl AST 21 (13-39) U/L ALT 29 (7-52) U/L Alkaline Phosphatase 56 (34-104) U/L Albumin 3.8 (3.4-5.0) gm/dl Diagnostic Findings Complex hypoechoic fluid collection in the left breast at 9:00 measuring 4.0 x 4.7 x 2.5 cm with abscess in the appropriate clinical setting. Medications Administered Home Medications Medication Instructions Recorded Confirmed Last Taken montelukast 10 mg tablet 10 mg PO HS PRN allergies 03/14/21 10/07/24 03/22/21 10:30 albuterol sulfate 90 mcg/actuation 1 inh inhalation QID PRN sob 03/22/21 10/07/24 2 Weeks Ago aerosol inhaler ~03/09/21 cetirizine 10 mg tablet 10 mg PO QAM PRN allergies 03/22/21 10/07/24 2 Days Ago ~03/21/21 fluticasone 250 mcg-salmeterol 50 1 inh inhalation BID 03/22/21 10/07/24 08/31/24 12:00 mcg/dose blistr powdr for inhalation (Advair Diskus) levonorgestrel 17.5 mcg/24 hr (up 17.5 mcg intrauterine UD 08/24/24 10/07/24 Unknown to 5 yrs) 19.5mg intrauterine device (Kyleena) cephalexin 500 mg capsule 500 mg PO TID 10 days #30 caps 10/05/24 10/07/24 Unknown sulfamethoxazole 800 1 tab PO BID 10 days #20 tabs 10/05/24 10/07/24 Unknown mg-trimethoprim 160 mg tablet (Bactrim DS) nystatin 100,000 unit/mL oral 5 ml PO QID 10/07/24 10/07/24 Unknown suspension Active Medications Generic Name Dose Route Start Last Admin Trade Name Freq PRN Reason Stop Dose Admin Acetaminophen 650 mg 10/08/24 01:24 10/08/24 10:35 Acetaminophen 325 Mg Tab PO 11/07/24 01:23 650 mg Q4H PRN Administration pain/fever Fluticasone/Vilanterol 1 puffs 10/08/24 09:00 10/08/24 08:23 Fluticasone/Vilanterol 200/25mcg 14 Puffs/Inhaler INH 11/07/24 08:59 1 puffs DAILY JESS Administration Piperacillin Sod/Tazobactam Sod 4.5 gm in 100 mls @ 25 mls/hr 10/08/24 04:00 10/08/24 13:55 Zosyn IV 10/15/24 03:59 25 mls/hr Q8H JESS Administration Protocol Sodium Chloride 1,000 mls @ 100 mls/hr 10/08/24 01:24 10/08/24 01:54 Nss IV 10/09/24 01:23 100 mls/hr .Q10H JESS Administration Vancomycin HCl 1,250 mg/ 275 mls @ 200 mls/hr 10/08/24 14:00 10/08/24 14:14 Sodium Chloride IV 10/15/24 13:59 200 mls/hr Q12H JESS Administration Nystatin 5 ml 10/08/24 09:00 10/08/24 08:23 Nystatin Susp 500,000 U/5 Ml Udc PO 10/18/24 08:59 5 ml QID JESS Administration
[2024-10-08] MEDS ORDERED: ONDANSETRON INJ 2 MG/ML 2 ML VIAL IV PRN (14:08)
[2024-10-08] MEDS ORDERED: ATROPINE SULFATE 0.1 MG/ML 10ML SYR IV PRN (14:08)
[2024-10-08] MEDS ORDERED: ePHEDrine sulfate 50 MG/ML AMP IV PRN (14:08)
[2024-10-08] MEDS: VANCOMYCIN HCL 1,250 MG in SODIUM CHLORIDE 0.9% 250 ML IV SCH (14:14)
--- NOTE | 2024-10-08 14:31 | Anesthesiology Consultation ---
Date of Service October 08, 2024 Assessment & Plan Chart Review Chart Review: Acceptable Risk for Surgery and Patient NOT seen in Pre Admission Testing Consults Requested none ASA ASA3 Proposed Anesthesia Anesthesia Type: MAC Risk / Benefits Reviewed With: PT / POA / Parent / Guardian, Accepts Plan and Informed Consent Obtained History Surgery Operation Date: 10/08/24 09:20 Proposed Procedures p Incision and Drainage Left Breast Abscess - Adam Obrien MD Height/Weight Height: 5 ft 7 in Weight: 128.2 kg Allergies Allergy/AdvReac Type Severity Reaction Status Date / Time No Known Drug Allergies Allergy Unknown NONE Verified 10/07/24 22:58 Medications Home Medications Medication Instructions Recorded Confirmed Last Taken montelukast 10 mg tablet 10 mg PO HS PRN allergies 03/14/21 10/07/24 03/22/21 10:30 albuterol sulfate 90 mcg/actuation 1 inh inhalation QID PRN sob 03/22/21 10/07/24 2 Weeks Ago aerosol inhaler ~03/09/21 cetirizine 10 mg tablet 10 mg PO QAM PRN allergies 03/22/21 10/07/24 2 Days Ago ~03/21/21 fluticasone 250 mcg-salmeterol 50 1 inh inhalation BID 03/22/21 10/07/24 08/31/24 12:00 mcg/dose blistr powdr for inhalation (Advair Diskus) levonorgestrel 17.5 mcg/24 hr (up 17.5 mcg intrauterine UD 08/24/24 10/07/24 Unknown to 5 yrs) 19.5mg intrauterine device (Kyleena) cephalexin 500 mg capsule 500 mg PO TID 10 days #30 caps 10/05/24 10/07/24 Unknown sulfamethoxazole 800 1 tab PO BID 10 days #20 tabs 10/05/24 10/07/24 Unknown mg-trimethoprim 160 mg tablet (Bactrim DS) nystatin 100,000 unit/mL oral 5 ml PO QID 10/07/24 10/07/24 Unknown suspension Active Medications Generic Name Dose Route Start Last Admin Trade Name Freq PRN Reason Stop Dose Admin Acetaminophen 650 mg 10/08/24 01:24 10/08/24 10:35 Acetaminophen 325 Mg Tab PO 11/07/24 01:23 650 mg Q4H PRN Administration pain/fever Fluticasone/Vilanterol 1 puffs 10/08/24 09:00 10/08/24 08:23 Fluticasone/Vilanterol 200/25mcg 14 Puffs/Inhaler INH 11/07/24 08:59 1 puffs DAILY JESS Administration Piperacillin Sod/Tazobactam Sod 4.5 gm in 100 mls @ 25 mls/hr 10/08/24 04:00 10/08/24 13:55 Zosyn IV 10/15/24 03:59 25 mls/hr Q8H JESS Administration Protocol Sodium Chloride 1,000 mls @ 100 mls/hr 10/08/24 01:24 10/08/24 01:54 Nss IV 10/09/24 01:23 100 mls/hr .Q10H JESS Administration Vancomycin HCl 1,250 mg/ 275 mls @ 200 mls/hr 10/08/24 14:00 10/08/24 14:14 Sodium Chloride IV 10/15/24 13:59 200 mls/hr Q12H JESS Administration Nystatin 5 ml 10/08/24 09:00 10/08/24 08:23 Nystatin Susp 500,000 U/5 Ml Udc PO 10/18/24 08:59 5 ml QID JESS Administration NPO Date Last Intake of Fluids: 10/07/24 Time Last Intake of Fluids: 23:45 Date Last Intake of Solids: 10/07/24 Time Last Intake of Solids: 23:45 Past Medical History Medical History Anxiety mild, no medications Asthma Eczema no medications Hx: UTI (urinary tract infection) (07/2024) s/p abx completion Morbid obesity Pilonidal abscess 2020 + current Syncope 2018 r/t hypoglycemia (treated at [facility] > given juice, crackers, normal saline) Exercise / Class Metabolic Activity 1 > 8 Run/Swim/Ski/Tennis Past Family History Family History Sister Family history of reaction to anesthesia s/p appendectomy had to stay several days post op due to hypoxemia and oxygen supplementation at [facility]. Graves' disease Past Surgical History Surgical History H/O wisdom tooth extraction History of excision of pilonidal cyst (2020) Past Anesthesia History No Hx of Anesthesia Complications and No Family Hx of Anesthesia Complications History of PONV No Hx of PONV and No Hx of Motion Sickness Social History Smoking Status: Current every day smoker tobacco type: cigarettes Smoking cigarettes per day: vapes daily (Advised) Do You Dip or Chew Tobacco: No Hx Alcohol Use: No Hx Substance Use: No substance use type: does not use Review of Systems ROS Unobtainable: All systems reviewed & are unremarkable except as noted in HPI & below Physical Exam Vital Signs Last Vital Signs Temp 36.7 C 10/08/24 07:02 Pulse 76 10/08/24 07:02 Resp 16 10/08/24 07:02 BP 116/72 10/08/24 07:02 Pulse Ox 100 10/08/24 07:02 O2 Del Method Room Air 10/08/24 07:02 ENMT Mouth: no TMJ abnormality Thyromental Distance: > or= 3.5 Finger Breadths Mallampati Class: III Neck normal visual inspection and trachea midline; neck extension not limited Respiratory normal respiratory effort Auscultation: lungs clear to auscultation bilaterally Cardiovascular Rate/Rhythm: regular rate and regular rhythm Heart Sounds: no murmur Musculoskeletal Spine: normal cervical ROM Extremities: full ROM of extremities Neurologic moves all extremities Psychiatric Orientation: alert and oriented x 3 Testing Laboratory Results 10/08/24 06:01 10/08/24 06:01
[2024-10-08] MEDS ORDERED: LIDOCAINE 2% 2 ML VIAL/AMP(20MG/ML) INFIL ONE (14:48)
[2024-10-08] MEDS ORDERED: KETAMINE HCL 10MG/ML SYR ONE (14:48)
[2024-10-08] MEDS ORDERED: PROPOFOL IV EMULSION 10 MG/ML 20 ML VIAL IV ONE (14:48)
[2024-10-08] MEDS ORDERED: GLYCOPYRROLATE 0.2 MG/ML VIAL ONE (14:48)
[2024-10-08] MEDS ORDERED: KETOROLAC 30 MG/ML VIAL ONE (15:03)
[2024-10-08] MEDS: BUPIVACAINE/EPINEPHRINE 0.5% MPF 1:200,000 30 ML VIAL ONE (15:07)
--- NOTE | 2024-10-08 15:07 | Operative Report ---
Post Operative Report Pre & Post Diagnosis Operation Date: 10/08/24 09:20 left breast abscess I identified the patient and participated in the time-out.: Yes Procedure Operation Date: 10/08/24 09:20 I&D left breast abscess Surgeon Adam Obrien MD Automatic Print Developer none Estimated Blood Loss 8 Findings Consistent with Post-Op Diagnosis left breast abscess at 7 o'clock Specimens intra-op cultures taken Drains none Anesthesia Type MAC Complications none Indications 24YO female with left breast abscess which has failed outpatient antibiotic regimen. Description of Procedure The patient was taken to the OR and underwent excellent MAC anesthesia. They were placed in the supine position and their left breast was prepped and draped in normal fashion. Marcaine was then used for a local block. A transverse incision was made through the body of the abscess. This was then opened and drained completely. Intra-op cultures were then taken. The cavity was then irrigated. They tolerated procedure well without complications. They will be recovered in the recovery room. I attest to the content of the Intraoperative Record and any orders documented therein. Any exceptions are noted below.
[2024-10-08] MEDS ORDERED: DexMEDEtomidine HCL IV 100 MCG/ML VIAL IV ONE (15:25)
--- NOTE | 2024-10-08 15:42 | Anesthesiology Progress Note ---
Date of Service October 08, 2024 Anesthesia Post Procedure Vital Signs Vital Signs: Temp Pulse Pulse Resp BP BP BP 10/08/24 14:23 36.8 C 57 L 18 133/85 10/08/24 07:02 36.7 C 76 16 116/72 10/08/24 01:33 36.8 C 67 16 135/82 10/08/24 01:14 68 17 118/58 L 10/07/24 22:28 36.7 C 59 L 16 123/88 10/07/24 18:41 36.1 C L 78 18 148/85 H Pulse Ox O2 Del Method 10/08/24 14:23 100 Room Air 10/08/24 07:02 100 Room Air 10/08/24 01:33 99 Room Air 10/08/24 01:14 98 Room Air 10/07/24 22:28 100 Room Air 10/07/24 18:41 100 Room Air Pain Intensity Breast: Pain Intensity: 7 Transfer of Care Handoff Completed per policy Notes Mental Status: alert / awake / arousable Patient Amnestic to Procedure: Yes Nausea / Vomiting: adequately controlled Pain: adequately controlled Airway Patency, RR, SpO2: stable & adequate BP & HR: stable & adequate Hydration State: stable & adequate Anesthetic Complications: no major complications apparent
[2024-10-08] MEDS: fentaNYL citrate PF 100 MCG/2 ML VIAL IV PRN (15:55)
[2024-10-08] MEDS ORDERED: oxyCODONE/ACETAMINOPHEN 5mg/325mg TAB PO PRN (16:35)
[2024-10-08] MEDS: HYDROmorphone INJ 1 MG/ML SYRINGE ONE (16:49)
[2024-10-08] MEDS: MIDAZOLAM HCL 1 MG/ML 2ML VIAL ONE (16:50)
[2024-10-08] MEDS: HYDROmorphone INJ 0.5 MG/0.5 ML SYR IV PRN (17:13)
[2024-10-08] MEDS: ONDANSETRON INJ 2 MG/ML 2 ML VIAL IV PRN (20:41)
[2024-10-09] MEDS: oxyCODONE/ACETAMINOPHEN 5mg/325mg TAB PO PRN (04:03)
[2024-10-09 06:54] VITALS: O2SAT 99
[2024-10-09 08:12] LABS: Hematocrit (blood only) 32.4 % (37.0-47.0); Hemoglobin 10.6 g/dl (12.0-16.0); Mean Corpuscular Hemoglobin 27.5 pg (25.0-34.0); Mean Corpuscular Hgb Conc 32.7 g/dL (32.0-36.0); Mean Corpuscular Volume 84.2 fL (80.0-100.0); Mean Platelet Volume 10.1 fL (9.4-12.4); Platelet Count 253 K/uL (130-400); RDW Coefficient of Variation 13.3 % (11.5-14.5); Red Blood Count 3.85 M/uL (4.20-5.40); White Blood Count 5.37 K/ul (4.8-10.8)
[2024-10-09 08:23] LABS: BUN Creatinine Ratio 7.9 (10-20); Calcium 8.3 mg/dl (8.6-10.3); Creatinine Clr Calc Pharmacy 119.6 ml/min; Potassium 4.1 mmol/L (3.5-5.1)
[2024-10-09] MEDS ORDERED: IBUPROFEN 600 MG TAB PO PRN (09:13)
--- NOTE | 2024-10-09 09:16 | Surgery Progress Note ---
Date of Service October 09, 2024 Assessment & Plan (1) Abscess of breast: Plan: POD # 1 s/p I&D of left breast abscess avss postop pain moderate culture with gram + cocci Plan: doing well from surgical standpoint for discharge home today Given size of incision would recommend keep packing in today and remove in 24 hours, patient removed packing herself last time she had i&D procedure and feels comfortable doing this. Daily dressing changes and as needed to keep clean and dry okay to shower surgical follow up scheduled on 10/14/24 at 9:[address] Obrien Oral abx for another 7 days (was given Bactrim for 10 days from ER on 10/06/24) Tylenol/Ibuprofen as needed for pain will send Percocet 5 tabs as needed for severe pain Discussed with Dr. Obrien who agrees with above Admission and Anticipated Discharge Date Admission Date: October 07, 2024 Subjective feeling good mild to moderate pain at surgical site, trying to avoid narcotics as makes her feel a little loopy. NO n,v tolerating diet dressing changed this am Physical Exam Constitutional: WD/WN, vitals as above + obese, cooperative and comfortable; no acute distress and not ill appearing Respiratory: normal respiratory effort; no respiratory distress Chest (Breasts): Additional Comments: Left breast sternal border, incision with packing present, moderate induration minimal erythema. Tenderness to palpation. No fluctuance. Bloody serous drainage on dressing. Skin: no rashes, warm and dry Psychiatric: A+Ox3, euthymic affect Results & Data Vital Signs (Past 12 Hours) Vital Signs Temp Pulse Resp BP BP Pulse Ox O2 Del Method 10/09/24 06:53 36.5 C 52 L 20 101/66 99 Room Air 10/09/24 03:52 36.5 C 58 L 14 128/78 100 Room Air 10/08/24 23:18 36.4 C L 64 16 119/77 100 Room Air Laboratory Results 10/09/24 10/08/24 Range/Units 07:45 14:32 WBC 5.37 (4.8-10.8) K/ul RBC 3.85 L (4.20-5.40) M/uL Hgb 10.6 L (12.0-16.0) g/dl Hct 32.4 L (37.0-47.0) % MCV 84.2 (80.0-100.0) fL MCH 27.5 (25.0-34.0) pg MCHC 32.7 (32.0-36.0) g/dL RDW Std Deviation 41.0 (36.4-46.3) fL RDW Coeff of Fadi 13.3 (11.5-14.5) % Plt Count 253 (130-400) K/uL MPV 10.1 (9.4-12.4) fL Sodium 138 (136-145) mmol/L Potassium 4.1 (3.5-5.1) mmol/L Chloride 106 (98-107) mmol/L Carbon Dioxide 27 (21-32) mmol/L Anion Gap 5 (3-11) BUN 8 (6-23) mg/dl Creatinine 1.01 (0.6-1.2) mg/dl Est Cr Clr Drug Dosing 119.6 ml/min eGFR 79.72 BUN/Creatinine Ratio 7.9 L (10-20) Glucose 92 (70-99(Fasting)) mg/dl Calcium 8.3 L (8.6-10.3) mg/dl POC Ur Test NEG (NEG) Microbiology 10/08/24 Unknown Gram Stain - Final Breast,Left Aerobic and Anaerobic Culture - Preliminary Citrobacter koseri
[2024-10-09 11:21] VITALS: PULSE 57; RESP 16; TEMP 98.1
[2024-10-09] MEDS: CIPROFLOXACIN 500 MG TAB PO SCH (11:57)
[2024-10-09 12:07] VITALS: BP 119/77
[2024-10-09] MEDS ORDERED: VANCOMYCIN LEVEL ONE (13:00)
--- NOTE | 2024-10-09 14:28 | Discharge Summary ---
Discharge Summary Date of Service October 09, 2024 Principal Dx & Hospital Course #1 = Principal Diagnosis (1) Abscess of breast: Ms. Short is a 24-year-old female with past medical history significant for allergic rhinitis, mild persistent asthma, morbid obesity, eczema, presents with failed outpatient treatment for left breast abscess. Patient says having the abscess for last 1 week. Initially was treated with amoxicillin. She was in the ER on 10/06/2024 and she was prescribed Keflex and Bactrim. She was admitted for planned ID of left breast abscess. ID performed without complication on 10/08 [place] with citrobactr koersi. Patient discharged with ciprofloxacin. On day of discharge, patient denies any acute uncontrolled pain or other concerns. #Abscess of left breast Failed outpatient treatment initially with Amoxicillin and then with Keflex and Bactrim Left breast upper medial aspect swollen, no erythema or drainage seen on inspection with nurse present in the room Breast ultrasound showing 4X4.7X 2.5 cm complex well-circumscribed hypoechoic fluid collection in the left breast at 9 s/p ID 10/08 Culture with citrobacter discharge with 6 more days ciprofloxacin Surgery planning I&D #Mild persistent asthma Continue home inhalers Currently stable Morbid obesity Counseling Notes For Next Care Provider Medication Changes From Visit ciprofloxacin 750mg bid x 12 tablets Admission HPI Per Admitting Provider 24-year-old female with past medical history significant for allergic rhinitis, mild persistent asthma, morbid obesity, eczema, presents with failed outpatient treatment for left breast abscess. Patient says having the abscess for last 1 week. Initially was treated with amoxicillin. She was in the ER on 10/06/2024 and she was prescribed Keflex and Bactrim. Patient says she is not getting better. Having a lot of pain. Denies any fevers. No drainage from the abscess. No headache. No sore throat or cough. No nausea. No shortness of breath. No abdominal pain. Currently resting comfortably and hemodynamically stable. Patient says she had breast abscess in the same site couple of years ago. Past medical history. As mentioned above Past surgical history. No surgical history on file. Social history. Vapes per Riboxx. No alcohol use. No drug use. Family history. Mother has chronic rhinitis. Asthma. Maternal aunt has asthma. Maternal grandmother has asthma. Diabetes. Sister has asthma. Sister has Graves' disease. Admission Exam Per Admitting Provider General- Not in distress Head- atraumatic Eyes- PERRL. ENT- oropharynx clear Neck- supple, no JVD. Lungs- clear to auscultation no wheezing or crackles Heart- regular rhythm; no murmur, no gallop Breast : Left breast upper medial side swollen, no erythema or drainage seen Abdomen- normal bowel sounds, soft, nontender, no distension Extremities- no pretibial edema, no erythema seen. Neuro- alert, oriented PERRL, no facial palsy; no dysarthria; moves extremities Discharge Exam Constitutional WD/WN, vitals as above Respiratory normal respiratory effort, lungs clear to auscultation Cardiovascular RRR, no murmur, no edema Gastrointestinal (Abdomen) normal bowel sounds, soft, nontender, no hepatosplenomegaly Updated Medication List Medication Instructions Recorded Confirmed Type montelukast 10 mg tablet 10 mg PO HS PRN allergies 03/14/21 10/07/24 History albuterol sulfate 90 mcg/actuation 1 inh inhalation QID PRN sob 03/22/21 10/07/24 History aerosol inhaler cetirizine 10 mg tablet 10 mg PO QAM PRN allergies 03/22/21 10/07/24 History fluticasone 250 mcg-salmeterol 50 1 inh inhalation BID 03/22/21 10/07/24 History mcg/dose blistr powdr for inhalation (Advair Diskus) levonorgestrel 17.5 mcg/24 hr (up 17.5 mcg intrauterine UD 08/24/24 10/07/24 History to 5 yrs) 19.5mg intrauterine device (Kyleena) nystatin 100,000 unit/mL oral 5 ml PO QID 10/07/24 10/07/24 History suspension ciprofloxacin HCl 250 mg tablet 750 mg (3 x 250 mg) PO Q12H #12 10/09/24 Rx tabs fluconazole 150 mg tablet 150 mg PO DAILY 1 dose #1 tab 10/09/24 Rx oxycodone-acetaminophen 5 mg-325 1 tab PO Q6H PRN pain (scale score 10/09/24 Rx mg tablet 7-10) #5 tabs Hospital Stay Data Consultations 10/07/24 22:47 ED Decision to Admit Stat 10/08/24 08:00 Consult General Surgery Routine Procedures Performed Operation Date: 10/08/24 09:20 Actual Procedures p Incision and Drainage Left Breast Abscess(Left) - Adam Obrien MD Diagnostic Imagining Performed 10/07/24 20:23 US breast LT limited Stat Pending Results Patient Have Any Pending Studies at Discharge: Yes (culture results) Discharge Instructions Given to Patient (Per Discharging Provider) You were prescribed Ciprofloxacin 750mg two times daily, your next dose is this evening, Please take with a meal. Please continue until all tablets are complete [12 tablets] Total Time Total Time Spent Total Time Spent (In Minutes): 45
--- NOTE | 2024-10-09 16:01 | Anesthesiology Progress Note ---
Date of Service October 09, 2024 Anesthesia Post Procedure Vital Signs Vital Signs: Temp Pulse Pulse Pulse Resp BP BP 10/09/24 12:06 36.7 C 57 L 16 97/61 L 119/77 10/09/24 11:20 36.7 C 57 L 16 97/61 L 10/09/24 06:53 36.5 C 52 L 20 101/66 10/09/24 03:52 36.5 C 58 L 14 128/78 10/08/24 23:18 36.4 C L 64 16 119/77 10/08/24 20:05 36.6 C 58 L 16 133/87 10/08/24 17:35 36.5 C 68 16 113/72 10/08/24 17:06 36.5 C 52 L 16 126/86 10/08/24 16:30 37.1 C 57 L 16 149/81 H 10/08/24 16:15 81 20 138/81 10/08/24 16:05 36.8 C 56 L 12 123/76 Pulse Ox O2 Del Method 10/09/24 12:06 99 10/09/24 11:20 99 Room Air 10/09/24 06:53 99 Room Air 10/09/24 03:52 100 Room Air 10/08/24 23:18 100 Room Air 10/08/24 20:05 100 Room Air 10/08/24 17:35 100 Room Air 10/08/24 17:06 100 Room Air 10/08/24 16:30 100 Room Air 10/08/24 16:15 100 Room Air 10/08/24 16:05 98 Room Air Pain Intensity Breast: Pain Intensity: 5 Transfer of Care Handoff Completed per policy Notes Mental Status: alert / awake / arousable and participated in evaluation Patient Amnestic to Procedure: Yes Nausea / Vomiting: adequately controlled Pain: adequately controlled Airway Patency, RR, SpO2: stable & adequate BP & HR: stable & adequate Hydration State: stable & adequate Anesthetic Complications: no major complications apparent Notes: Review of EMR indicates that pt recovered 09/02/24 without anesthesia-related complaints or complications.
== END 2024-10-09 12:39 | disposition home or self-care (01) | DRG 584 ==
LOC: ED 18:17 → 3N 23:56